=== PATIENT | female | born 1945 | race Caucasian/White ===

== ENCOUNTER 2016-06-22 11:23 | Inpatient (IN) | payer MEDICARE, MEDICAID ==
[~2016-06-22] VITALS: Ht 152.4 cm; Wt 69.7 kg
[2016-06-22] VITALS (12 sets, daily range): BP systolic 74–117; BP diastolic 57–67; PULSE 108–126; RESP 20–40; TEMP 97.8–98.1; O2SAT 76–100
[2016-06-22 13:13] LABS: BLOOD GAS BASE EXCESS -6.3 mmol/L (-2-2); BLOOD GAS CARBOXYHEMOGLOBIN 1.1 % (0-4); BLOOD GAS HCO3 18 mmol/L (22-26); BLOOD GAS METHEMOGLOBIN 1.1 % (0-2); BLOOD GAS O2 HGB SATURATION 93 % (90-100); BLOOD GAS OXYGEN CONTENT 15.6 Vol % (12.0-20.0); BLOOD GAS PCO2 34 mmHg (38-42); BLOOD GAS PO2 76 mmHg (61-120); BLOOD GAS TOTAL HGB 11.9 G/DL (12.0-16.0); TEMP CORR TO 98.6
[2016-06-22 13:14] LABS: CRITICAL VALUE NO; DRAW SITE ART LINE; OXYGEN DEVICE VENTILATOR; STAT YES; VENT SETTINGS PC/AC
[2016-06-22 13:15] LABS: FIO2 100 %
[2016-06-22] MEDS ORDERED: MIDAZOLAM 100 MG/ML INJ 100 ML IV SCH ×2 (13:15→14:45)
[2016-06-22] MEDS ORDERED: fentaNYL DRIP 250 ML IV SCH ×2 (13:15→14:45)
[2016-06-22] MEDS ORDERED: CHLORHEXIDINE GLUCONATE 2 % 1 PACK (2 CLOTHS) TOP PRN (13:15)
[2016-06-22] MEDS ORDERED: MISCELLANEOUS NURSING INFORMATION XX SCH (13:15)
[2016-06-22] MEDS ORDERED: SODIUM CHLORIDE 0.9% FLUSH 5 ML FLUSH IV FLUSH PRN (13:15)
[2016-06-22] MEDS ORDERED: SODIUM CHLOR 0.9% 1000 ML INJ 1,000 ML IV ONE ×3 (13:30→18:45)
--- NOTE | 2016-06-22 13:41 | HHI.HP ---
[facility] Service Critical Care Medicine Primary Care Physician Unknown Admission Diagnosis Diagnosis: (1) Septic shock Diagnosis: Principal (2) Acute mesenteric ischemia Diagnosis: Principal (3) Metabolic acidemia Diagnosis: Principal (4) Acute hypoxemic respiratory failure Diagnosis: Principal (5) S/P right hemicolectomy Diagnosis: Principal (6) Acute kidney failure Diagnosis: Principal (7) Lactic acidosis Diagnosis: Principal Chief Complaint: Acute on chronic mesenteric ischemia s/p r hemicolectomy severe septic shock Multiorgan dysfunction syndrome Travel History International Travel<30 Days: No Contact w/Intl Traveler <30 Da: No Traveled to Known Affected Are: No Sepsis Criteria SIRS Criteria (2 or more): Heart rate over 90, RR > 20 or PaCO2 < 32, WBC > 43434, < 4000 or > 10% bands Sepsis Criteria (SIRS+source): Infect source susp/known Severe Sepsis (+one): Organ Dysfunction, Hypotension, Lactate >2 Septic Shock Criteria: Unresponsive to 30ml/kg fluid bolus, Lactic acid >=4 Multiple Organ Dysfunction Syn: Evidence -2 organs failing Criteria Outcome: Meets septic shock criteria History of Present Illness Patient is a 70-year-old female with past medical history significant for multiple bowel obstructions, multiple exploratory laparotomy in the past, history of diabetes, hypothyroidism, depression, lupus, asthma who presented to the [facility] with intractable nausea vomiting and diarrhea. CT evaluation of the abdomen in the ER showed small bowel infarction, pneumatosis intestinalis, mesenteric venous air and portal venous air. She was in profound septic shock was aggressively resuscitated intubated and placed on mechanical ventilation. Apparently pressor requirement rapidly increased to requiring 4 pressors, and stress dose steroids. She was placed on epinephrine, Levophed, vasopressin and Tigre-Synephrine infusions. Gen. surgery was emergently consulted. Patient underwent emergency exploratory laparoscopy and apparently her righ colon was found to be ischemic. There was global lack of flow to the small bowel and right hepatic flexure specifically looked nonviable. Patient had right hemicolectomy. The distal ileum was anastomosed to the transverse colon. Patient remained on multiple pressors overnight and was fluid resuscitated overnight. Attending surgeon contacted Dr. Flores at [facility] for transfer, specifically for vascular intervention for suspected acute on chronic mesenteric ischemia I immediately examined the patient on arrival to the ICU. She remained on 30 mics per minute of Levophed, 0.04 IU vasopressin, and Tigre-Synephrine at 100 mcg/ m. Her blood pressure was systolic 80 and Tigre-Synephrine was doubled. I also gave her an amp of bicarbonate and 2 L of normal saline boluses stat. All the labs are pending at this time I placed her on Zosyn, single dose of vancomycin and also added Flagyl for history of C. difficile colitis. Dr. Flores is requesting a CT angiogram of chest abdomen pelvis, to decide upon the best course of surgery. We'll continue with aggressive fluid resuscitation and antibiotic coverage and ventilator support until then. Patient has a right IJ central line and right radial arterial line which was placed yesterday 06/21/16 Review of Systems ROS Limitations: Intubated, Altered Mental Status Past Family Social History Allergies: Coded Allergies: UNOBTAINABLE (Unverified , 06/22/16) Intubated Past Medical History Recurrent small bowel obstructions History of lupus History of C. difficile colitis Anxiety and depression Hypertension Asthma Chronic pain and narcotic abuse Hypothyroidism Type 2 diabetes Peptic ulcer disease Glaucoma Osteoporosis Past Surgical History Thyroidectomy Cholecystectomy Multiple exploratory laparotomy Knee surgery Hemorrhoidectomy Reported Medications Unable to review at this time Active Ordered Medications Currently on Levophed 30 mics per minute, vasopressin at 0.04 international units, Tigre-Synephrine 100 mcg/m On Versed for sedation Family History Unable to obtain Social History Unable to obtain but per transfer summary, no alcohol or tobacco use Physical Exam Physical Exam GENERAL: 70 yo female who is intubated, critically ill, currently on 3 pressors SKIN: Bruising hematoma on the right fore hand, recent surgical incision with sutures right second toe. HEAD: Atraumatic. Normocephalic. EYES: 3 mm bilaterally. No scleral icterus. Positive scleral edema ENT: Mucous membranes dry, orotracheally intubated NECK: Trachea midline, right IJ central line in place CARDIOVASCULAR: Tachycardic. No murmurs rubs or gallops. Currently on maximum doses of Levophed, vasopressin and 200 mcg/m of Tigre-Synephrine RESPIRATORY: Air entry diminished bilaterally with few coarse rhonchi, scattered wheezes GASTROINTESTINAL: Abdomen soft, midline incision dressing intact. Patient grimaces to pain : Knox in place. MUSCULOSKELETAL: Poor peripheral perfusion, weak peripheral pulses NEUROLOGICAL: Eyes are spontaneously open. Weakly withdraws all extremities Laboratory Laboratory Tests Test 06/22/16 12:43 Blood Gas Puncture Site ART LINE Blood Gas Patient Temperature 98.6 Blood Gas HCO3 18 Blood Gas Base Excess -6.3 Blood Gas Oxygen Saturation 93 Arterial Blood pH 7.35 Arterial Blood Partial 34 Pressure CO2 Arterial Blood Partial 76 Pressure O2 Arterial Blood Oxygen Content 15.6 Arterial Blood 1.1 Carboxyhemoglobin Arterial Blood Methemoglobin 1.1 Blood Gas Hemoglobin 11.9 Oxygen Delivery Device VENTILATOR Blood Gas Ventilator Setting PC/AC Blood Gas Inspired Oxygen [address] abdomen pelvis showed small bowel infarction and pneumatosis intestinalis with mesenteric venous and portal venous Septic Shock Reassessment Heart: Other (tachycardic) Lungs: Course, Diminished Skin: Mottled Peripheral Pulses: Weak Right Radial Weak Left Radial Assessment and Plan Assessment and Plan NEURO: Acute metabolic encephalopathy History of Anxiety depression History of Chronic pain -Versed and fentanyl for sedation and vent synchrony -No sedation vacation RESP: Acute hypoxemic respiratory failure ARDS History of asthma -Currently on PC/AC- change to ACV TV 400 PEEP 10 RR 20 Titrate FiO2 100% -ABG in 30 MIN -DuoNeb every 6 hours and when necessary -Check sputum culture CV: Severe shock (combination of septic and cardiogenic) Lactic acidemia Reported atrial fibrillation with RVR -Currently on Levophed, vasopressin and Tigre-Synephrine -Check central venous oxygen saturation, if less than 65 start dobutamine -Check bedside echo -Normal saline IV fluids 4L bolus followed by bicarb infusion -Serial lactic acid, troponin, CVP -Gee Trac monitor, SVV, CI, SV GI: Acute on chronic mesenteric ischemia Status post right hemicolectomy -Continue aggressive fluid resuscitation, broad-spectrum antibiotics -Status post exploratory laparoscopy and right hemicolectomy with ileo-colon anastomosis -Plan for CT angiogram of the abdomen pelvis today-SMA intervention per CT : Acute kidney failure -Monitor renal function closely. Knox catheter. -Continue aggressive fluid resuscitation -Renal failure is secondary to ATN from septic shock ID: Severe septic shock Leukocytosis -Blood culture urine culture and sputum culture -IV vancomycin 1, placed on Zosyn and Flagyl (hx of C diff) -ID consult if not improving HEME: -Monitor CBC, CMP, coags ENDO: Type 2 diabetes -Sliding-scale insulin -Electrolyte replacement per protocol -Stress dose steroids PROPH: -Bilateral lower extremity SCDs. Protonix 40 mg IV daily. Heparin 5000 units subcutaneous every 12 LINES: -Utilize peripheral IVs, central line if needed CC time 120min Code Status Full Discussed Condition With Dr. Flores Problem Qualifiers (1) Acute kidney failure: Qualified Code: N17.9 - Acute renal failure, unspecified acute renal failure type Maribel Hodge MD Jun 22, 2016 13:41
[2016-06-22] MEDS ORDERED: TERBUTALINE INJ 1 MG/ML AMP SQ PRN (13:45)
[2016-06-22] MEDS: PHENYLEPHRINE HCL 80 MG/D5W 492 ML ADMIX IV SCH ×4 (13:57→20:39)
[2016-06-22] MEDS: VASOPRESSIN 40 U/D5W 100 ML Shock/septic shock, do NOT titrate until taper off IV SCH ×2 (13:57)
[2016-06-22] MEDS: NOREPINEPHRINE 8 MG/D5W 250 ML IV SCH ×4 (13:57→20:39)
[2016-06-22] MEDS: PIPERACIL-TAZO 3.375 GM PREMIX 50 ML IV SCH ×2 (13:59→20:38)
[2016-06-22] MEDS: HEPARIN SODIUM - SQ 10,000 UNITS/ML VIAL SQ SCH (14:00)
[2016-06-22] MEDS ORDERED: SODIUM BICARBONATE 8.4% INJ 100 MEQ in DEXTROSE 5% IN WATE 1000ML INJ 1,000 ML IV SCH ×2 (14:00)
[2016-06-22 14:40] LABS: HEMATOCRIT 34.1 % (35.0-46.0); MEAN CELL VOLUME 97.6 FL (80.0-100.0); MEAN CORPUSCULAR HEMOGLOBIN 32.4 PG (27.0-34.0); MEAN CORPUSCULAR HGB CONC 33.2 % (32.0-36.0); PLATELET COUNT 91 TH/MM3 (150-450); RED CELL DISTRIBUTION WIDTH 15.4 % (11.6-17.2); WHITE BLOOD COUNT 22.1 TH/MM3 (4.0-11.0)
[2016-06-22 14:45] LABS: APTT (PATIENT) 53.8 SEC (24.3-30.1); INTERNATIONAL NORMALIZED RATIO 1.7 RATIO; PROTHROMBIN TIME - PATIENT 19.1 SEC (9.8-11.6)
[2016-06-22 14:49] LABS: HEMO FLAGS AUTO DIFF
[2016-06-22] MEDS ORDERED: VANCOMYCIN INJ 1,000 MG in SODIUM CHLOR 0.9% 250 ML INJ 250 ML IV ONE (15:00)
[2016-06-22 15:04] LABS: BICARBONATE 19.2 MEQ/L (21.0-32.0); CALCIUM-PROTEIN CORRECTED 7.6 MG/DL (8.5-10.1); MAGNESIUM 1.7 MG/DL (1.5-2.5); POTASSIUM 3.6 MEQ/L (3.5-5.1); TOTAL BILIRUBIN ADULT 0.9 MG/DL (0.2-1.0)
--- NOTE | 2016-06-22 15:14 | RADRPT ---
EXAM DATE/TIME: 06/22/2016 14:47 [facility] COMPARISON: No previous studies available for comparison. INDICATIONS : Respiratory disease. MEDICAL HISTORY : Unobtainable. SURGICAL HISTORY : Unobtainable. ENCOUNTER: Initial ACUITY: 1 day PAIN SCORE: Non-responsive. LOCATION: Bilateral chest FINDINGS: A single AP portable semierect view the chest was obtained and demonstrates an endotracheal tube in p lace with the tip 1 cm above the pj. A nasogastric tube is seen coursing through the esophagus in to the stomach. There is a right internal jugular central venous line in place. Alveolar opacities ar e present in both lungs with more consolidative opacity at the left lung base with obscuration of the left hemidiaphragm. There is blunting of both costophrenic angles. Atherosclerotic calcifications ar e present in the aorta. Patient is status post multilevel kyphoplasty in the thoracic spine. CONCLUSION: 1. Bilateral pleural effusions and alveolar opacities which could indicate congestive heart failure. 2. Endotracheal tube and nasogastric tube in place. Jose Renteria MD on June 22, 2016 at 15:07 Board Certified Radiologist. This report was verified electronically.
[2016-06-22 15:16] LABS: BANDS 36 % (0-6); CORRECTED NUCLEATED RBC 1 /100 WBC (0-0); METAMYELOCYTES 4 % (0-1); MYELOCYTES 3 % (0-0); NEUTROPHIL # MANUAL DIFF 21.4 TH/MM3 (1.8-7.7); POLYS (SEG NEUTROPHILS) 54 % (16-70); WBC DIFF SAMPLE 100
[2016-06-22 15:17] LABS: OVALOCYTES 1+ (NORMAL); PLATELET ESTIMATE SMEAR LOW (NORMAL); PLATELET MORPHOLOGY NORMAL (NORMAL); SCAN/DIFF FINAL DIFF MANUAL
--- NOTE | 2016-06-22 16:18 | HHI.HP ---
History of Present Illness Chief Complaint: acute mesenteric ischemia History of Present Illness History obtained from chart and referring surgeon as patient is sedation, intubated and in guarded condition 70yo lady presented to [facility] ([facility]) with abdominal pain. She has a history of multiple SBO and the appropriate thought was internal hernia/SBO. Upon exploration, she was noted to have R colonic ischemia and poor pulsatility in the SMA. A R hemicolectomy was performed and an iliocolonic anastomosis was done. Post-operatively she was on 3 pressors but over night, they were weaned. She was transferred here for further management, resuscitation, and potential mesenteric revascularization. NC CT shows calcific visceral artery occlusive disease. Past/Family/Social History Past Medical History HTN DM SLE hypothyroidism osteopenia peptic ulcer disease Past Surgical History TESS cholecystectomy TOM TKA Coded Allergies: UNOBTAINABLE (Unverified , 06/22/16) Intubated Review of Systems ROS Limitations: Clinical Condition Constitutional: DENIES: Fever, Chills, Change in appetite Endocrine: DENIES: Heat/cold intolerance Eyes: DENIES: Blurred vision, Eye pain Physical Exam Vitals/I&O Date Time Temp Pulse Resp B/P Pulse Ox O2 Delivery O2 Flow Rate FiO2 06/22/16 12:40 100 100 Neuro: sedated, intubated HEENT: swollen eyes c/w resuscitation Neck: no JVD but edematous Heart: reg rate Abdomen: incision dressing c/d/i Vascular: extremities cool, no open wounds Laboratory Tests Test 06/22/16 06/22/16 06/22/16 12:43 13:20 13:50 Blood Gas Puncture Site ART LINE Blood Gas Patient Temperature 98.6 Blood Gas HCO3 18 Blood Gas Base Excess -6.3 Blood Gas Oxygen Saturation 93 Arterial Blood pH 7.35 Arterial Blood Partial 34 Pressure CO2 Arterial Blood Partial 76 Pressure O2 Arterial Blood Oxygen Content 15.6 Arterial Blood 1.1 Carboxyhemoglobin Arterial Blood Methemoglobin 1.1 Blood Gas Hemoglobin 11.9 Oxygen Delivery Device VENTILATOR Blood Gas Ventilator Setting PC/AC Blood Gas Inspired Oxygen 100 White Blood Count 22.1 Red Blood Count 3.50 Hemoglobin 11.3 Hematocrit 34.1 Mean Corpuscular Volume 97.6 Mean Corpuscular Hemoglobin 32.4 Mean Corpuscular Hemoglobin 33.2 Concent Red Cell Distribution Width 15.4 Platelet Count 91 Mean Platelet Volume 8.9 Neutrophils (%) (Auto) Lymphocytes (%) (Auto) Monocytes (%) (Auto) Eosinophils (%) (Auto) Basophils (%) (Auto) Neutrophils # (Auto) Lymphocytes # (Auto) Monocytes # (Auto) Eosinophils # (Auto) Basophils # (Auto) CBC Comment AUTO DIFF Differential Total Cells 100 Counted Neutrophils % (Manual) 54 Band Neutrophils % 36 Lymphocytes % 1 Monocytes % 2 Neutrophils # (Manual) 21.4 Metamyelocytes 4 Myelocytes 3 Nucleated Red Blood Cells 1 Differential Comment FINAL DIFF MANUAL Platelet Estimate LOW Platelet Morphology Comment NORMAL Ovalocytes 1+ Prothrombin Time 19.1 Prothromb Time International 1.7 Ratio Activated Partial 53.8 Thromboplast Time Fibrinogen 270 Sodium Level 143 Potassium Level 3.6 Chloride Level 105 Carbon Dioxide Level 19.2 Anion Gap 19 Blood Urea Nitrogen 22 Creatinine 1.78 Estimat Glomerular Filtration 28 Rate Random Glucose 221 Lactic Acid Level 11.0 Calcium Level 5.9 Protein Corrected Calcium 7.6 Magnesium Level 1.7 Total Bilirubin 0.9 Aspartate Amino Transf 46 (AST/SGOT) Alanine Aminotransferase 25 (ALT/SGPT) Alkaline Phosphatase 39 Troponin I 0.53 Total Protein 3.7 Albumin 2.2 Nasal Screen MRSA (PCR) NEGATIVE Date/Time Procedure Status Source Growth 06/22/16 15:29 Aerobic Blood Culture Received Blood Line Pending 06/22/16 15:29 Anaerobic Blood Culture Received Blood Line Pending Last 48 hours Impressions Chest X-Ray 06/22/16 0000 Signed Impressions: Service Date/Time: Wednesday, June 22, 2016 14:47 - CONCLUSION: 1. Bilateral pleural effusions and alveolar opacities which could indicate congestive heart failure. 2. Endotracheal tube and nasogastric tube in place. Jose Renteria MD Assessment and Plan Plan She needs continued aggressive resuscitation including FFP given INR 1.7. CTA of C/A/P. Based on results of resuscitation, will proceed to revascularization, open or endovascularly and potential bowel resection. Pt is very guarded condition, as was communicated by prior surgeon to family, and I will re-iterate. Yusef Flores MD Jun 22, 2016 16:18
[2016-06-22 16:29] LABS: BLOOD GAS BASE EXCESS -5.5 mmol/L (-2-2); BLOOD GAS CARBOXYHEMOGLOBIN 1.1 % (0-4); BLOOD GAS HCO3 19 mmol/L (22-26); BLOOD GAS O2 HGB SATURATION 94 % (90-100); BLOOD GAS OXYGEN CONTENT 14.6 Vol % (12.0-20.0); BLOOD GAS PCO2 31 mmHg (38-42); BLOOD GAS PO2 80 mmHg (61-120); CRITICAL VALUE NO; OXYGEN DEVICE VENTILATOR; TEMP CORR TO 98.6
[2016-06-22 16:30] LABS: DRAW SITE ART LINE; FIO2 100 %; STAT NO; VENT SETTINGS AC RR20VT500PEEP10
[2016-06-22] MEDS: RESP: ALBUTEROL 2.5 MG/IPRATROPIUM 0.5 MG NEB (SCH) INH ×2 (16:37→20:24)
[2016-06-22] MEDS: metroNIDAZOLE 500 MG INJ 100 ML IV SCH (16:46)
[2016-06-22] MEDS: SODIUM BICARBONATE 8.4% INJ 150 MEQ in WATER STERILE FOR INJ 850 ML IV SCH ×2 (16:47→21:52)
[2016-06-22] MEDS ORDERED: IODIXANOL 320 MG/ML 10 ML VIAL (for Rad CT) IV ONE (17:24)
--- NOTE | 2016-06-22 18:07 | RADRPT ---
EXAM DATE/TIME: 06/22/2016 17:19 [facility] COMPARISON: No previous studies available for comparison. INDICATIONS : Diffuse abdominal pain; evaluate for mesenteric ischemia. IV CONTRAST: 50 cc Visipaque (iodixanol) IV RADIATION DOSE: 8.87 CTDIvol (mGy) MEDICAL HISTORY : None SURGICAL HISTORY : None. ENCOUNTER: Initial ACUITY: 1 day PAIN SCALE: Non-responsive LOCATION: Abdomen/pelvis TECHNIQUE: Volumetric scanning was performed using a multi-row detector CT scanner. The data was post processed with a variety of visualization algorithms including full volume maximum intensity pr ojection, multi-planar sliding thin slab reformation, curved planar reformation, and surface renderin g techniques. Using automated exposure control and adjustment of the mA and/or kV according to patie nt size, radiation dose was kept as low as reasonably achievable to obtain optimal diagnostic quality images. FINDINGS: ABDOMINAL AORTA: There is atherosclerotic calcification of the abdominal aorta. The origin of the c eliac is widely patent but there is a nonostial, 50% stenosis which may be flow limiting to the makenzie c distribution. The SMA shows dense atherosclerotic calcification at the origin and the lumina appea rs fenestrated and I suspect there may be a significant stenosis in this region as well. The YESENIA is v shyann diminutive but I believe remains patent. Calcification of both renal vessels without significant stenosis. PELVIS: Atherosclerotic calcifications of the iliac arteries, particularly in the region of the co mmon iliac but both iliac vessels appear to be patent. MISCELLANEOUS: Patient has extensive bilateral pulmonary infiltrates concerning for possible pneumo cristina. There are also moderate size bilateral pleural effusions. Scattered atherosclerotic calcificati ons of the coronary arteries. The patient has multiple old healed bony fractures involving multiple right-sided ribs as well as the inferior and superior pubic rami bilaterally, left worse than right, where there is brisk callus formation on the left side. There is extensive anasarca of the soft tissues of the trunk and mesentery which is nonspecific but c ould be indicative of right heart insufficiency or diffuse sepsis. Free air is identified in the william toneal cavity but the patient has evidence of recent surgical intervention. CONCLUSION: 1. 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 2. The ostium of the SMA is heavily calcified and the lumen appears to be fenestrated with a possible significant stenosis in this region as well. SMA is otherwise patent. 3. YESENIA is diffusely diminutive but I believe remains patent. 4. Findings of right heart insufficiency or sepsis with bilateral moderate size pleural effusions and concomitant atelectatic changes in the bases. There is also generalized anasarca in the subcutaneou s tissues around the trunk. Anasarca is also seen in the mesenteric leaves with some ascites in the peritoneal cavity. 5. Pneumoperitoneum but the patient does have findings of a recent surgical intervention. Please cor relate with the clinical history. 6. Findings of multiple prior bony injuries with healed fracture deformities and callus formation piter und multiple right-sided ribs as well as the superior and inferior pubic rami bilaterally. The patien t has an old thoracic multilevel kyphoplasty as well. 7. Bilateral air-space disease in the lungs. Some of this may be atelectasis but the extensive nature is concerning for a possible pneumonic component as well. Seferino Peters MD on June 22, 2016 at 17:37 Board Certified Radiologist. This report was verified electronically.
[2016-06-22] MEDS ORDERED: HYDROCORTISONE SOD SUCCINATE 100 MG VIAL IV ONE (20:15)
[2016-06-22] MEDS: ALBUMIN HUMAN 25% 25 GM/100 ML BAGP IV SCH (20:38)
[2016-06-22 20:49] LABS: BLOOD GAS BASE EXCESS -8.6 mmol/L (-2-2); BLOOD GAS CARBOXYHEMOGLOBIN 0.7 % (0-4); BLOOD GAS HCO3 19 mmol/L (22-26); BLOOD GAS O2 HGB SATURATION 89 % (90-100); BLOOD GAS OXYGEN CONTENT 13.6 Vol % (12.0-20.0); BLOOD GAS PCO2 62 mmHg (38-42); BLOOD GAS PO2 75 mmHg (61-120); BLOOD GAS TOTAL HGB 10.8 G/DL (12.0-16.0); CRITICAL VALUE YES; OXYGEN DEVICE VENTILATOR; TEMP CORR TO 98.6
[2016-06-22 20:50] LABS: DRAW SITE ART LINE; FIO2 100 %; STAT YES; VENT SETTINGS PC/AC/
[2016-06-22 20:50] LABS: BLOOD GAS VENOUS BASE EXCESS -6.4 mmol/L (-2-2); BLOOD GAS VENOUS HCO3 22 mmol/L (22-26); BLOOD GAS VENOUS O2 CONTENT 8.6 Vol % (9.0-17.0); BLOOD GAS VENOUS O2 HGB SAT 54 % (70-76); BLOOD GAS VENOUS PCO2 78 mmHg (44-48); BLOOD GAS VENOUS PO2 37 mmHg (35-40); BLOOD GAS VENOUS pH 7.09 (7.360-7.400); TEMP CORR TO 98.6
[2016-06-22 20:51] LABS: CRITICAL VALUE YES; DRAW SITE ART LINE; FIO2 100 %; OXYGEN DEVICE VENTILATOR; VENT SETTINGS PC/AC/
[2016-06-22 20:52] LABS: STAT YES
[2016-06-22] MEDS ORDERED: DOBUTamine INJ 1,000 MG in DEXTROSE 5% IN WATER INJ 170 ML IV SCH ×2 (21:00)
[2016-06-22] MEDS: SODIUM CHLORIDE 0.9% FLUSH 5 ML FLUSH IV FLUSH SCH (21:00)
[2016-06-22] MEDS: EPINEPHrine (1:1000) INJ 2 MG in DEXTROSE 5% IN WATER INJ 248 ML IV SCH ×2 (21:51)
[2016-06-22 23:31] LABS: BLOOD GAS BASE EXCESS -7.5 mmol/L (-2-2); BLOOD GAS HCO3 18 mmol/L (22-26); BLOOD GAS O2 HGB SATURATION 97 % (90-100); BLOOD GAS OXYGEN CONTENT 13.5 Vol % (12.0-20.0); BLOOD GAS PCO2 36 mmHg (38-42); BLOOD GAS PO2 184 mmHg (61-120); BLOOD GAS TOTAL HGB 9.6 G/DL (12.0-16.0); TEMP CORR TO 98.6
[2016-06-22 23:32] LABS: CRITICAL VALUE NO; OXYGEN DEVICE VENTILATOR; VENT SETTINGS PC/AC
[2016-06-22 23:33] LABS: DRAW SITE ART LINE; FIO2 100 %; STAT NO
[2016-06-23] VITALS (9 sets, daily range): BP systolic 100–132; BP diastolic 60–74; PULSE 108–132; RESP 24; TEMP 97.5–99.3; O2SAT 67–97
[2016-06-23] MEDS: NOREPINEPHRINE 8 MG/D5W 250 ML IV SCH ×4 (00:55→11:19)
[2016-06-23] MEDS: PIPERACIL-TAZO 3.375 GM PREMIX 50 ML IV SCH ×3 (01:53→14:00)
[2016-06-23] MEDS: HEPARIN SODIUM - SQ 10,000 UNITS/ML VIAL SQ SCH ×2 (01:53→14:00)
[2016-06-23] MEDS: RESP: ALBUTEROL 2.5 MG/IPRATROPIUM 0.5 MG NEB (SCH) INH ×2 (03:17→10:55)
[2016-06-23 03:36] LABS: BLOOD GAS BASE EXCESS -6.5 mmol/L (-2-2); BLOOD GAS HCO3 18 mmol/L (22-26); BLOOD GAS O2 HGB SATURATION 98 % (90-100); BLOOD GAS OXYGEN CONTENT 14.3 Vol % (12.0-20.0); BLOOD GAS PCO2 34 mmHg (38-42); BLOOD GAS PO2 231 mmHg (61-120); TEMP CORR TO 98.6
[2016-06-23 03:37] LABS: CRITICAL VALUE NO; DRAW SITE ART LINE; FIO2 100 %; OXYGEN DEVICE VENTILATOR; STAT NO; VENT SETTINGS PC/AC
[2016-06-23 03:53] LABS: HEMATOCRIT 29.7 % (35.0-46.0); MEAN CELL VOLUME 97.7 FL (80.0-100.0); MEAN CORPUSCULAR HEMOGLOBIN 32.4 PG (27.0-34.0); MEAN CORPUSCULAR HGB CONC 33.2 % (32.0-36.0); PLATELET COUNT 53 TH/MM3 (150-450); RED BLOOD COUNT 3.04 MIL/MM3 (4.00-5.30); RED CELL DISTRIBUTION WIDTH 15.8 % (11.6-17.2); WHITE BLOOD COUNT 27.9 TH/MM3 (4.0-11.0)
[2016-06-23] MEDS ORDERED: HYDROCORTISONE SOD SUCCINATE 100 MG VIAL IV PUSH ONE (04:00)
[2016-06-23] MEDS ORDERED: CHLORHEXIDINE GLUCONATE 2 % 1 PACK (2 CLOTHS) TOP SCH (04:00)
[2016-06-23] MEDS: HYDROCORTISONE SOD SUCCINATE 100 MG VIAL IV SCH ×2 (04:01→12:00)
[2016-06-23 04:16] LABS: ALT (GPT) 45 U/L (10-53); ANION GAP 18 MEQ/L (5-15); AST (GOT) 78 U/L (15-37); BICARBONATE 20.1 MEQ/L (21.0-32.0); BLOOD UREA NITROGEN 19 MG/DL (7-18); CHLORIDE 98 MEQ/L (98-107); GLOMERULAR FILTRATION RATE 33 ML/MIN (>89); MAGNESIUM 1.3 MG/DL (1.5-2.5); SODIUM (NA) 136 MEQ/L (136-145)
[2016-06-23 04:18] LABS: ALKALINE PHOSPHATASE 40 U/L (45-117); HEMO FLAGS AUTO DIFF; TOTAL BILIRUBIN ADULT 1.8 MG/DL (0.2-1.0)
[2016-06-23] MEDS: SODIUM BICARBONATE 8.4% INJ 150 MEQ in WATER STERILE FOR INJ 850 ML IV SCH ×2 (04:32→11:19)
[2016-06-23] MEDS: EPINEPHrine (1:1000) INJ 2 MG in DEXTROSE 5% IN WATER INJ 248 ML IV SCH ×4 (04:33→11:19)
[2016-06-23] MEDS: PHENYLEPHRINE HCL 80 MG/D5W 492 ML ADMIX IV SCH ×4 (04:33→11:19)
[2016-06-23 04:38] LABS: CALCIUM-PROTEIN CORRECTED 6.3 MG/DL (8.5-10.1)
[2016-06-23 06:05] LABS: BLOOD GAS VENOUS BASE EXCESS -2.9 mmol/L (-2-2); BLOOD GAS VENOUS HCO3 22 mmol/L (22-26); BLOOD GAS VENOUS O2 HGB SAT 48 % (70-76); BLOOD GAS VENOUS PCO2 40 mmHg (44-48); BLOOD GAS VENOUS PO2 27 mmHg (35-40); BLOOD GAS VENOUS pH 7.35 (7.360-7.400); TEMP CORR TO 98.6
[2016-06-23 06:06] LABS: CRITICAL VALUE YES; OXYGEN DEVICE VENTILATOR
[2016-06-23 06:07] LABS: DRAW SITE CENTRAL LINE; FIO2 85 %; STAT NO; VENT SETTINGS PC/AC
--- NOTE | 2016-06-23 06:32 | RADRPT ---
EXAM DATE/TIME: 06/23/2016 05:35 [facility] COMPARISON: CHEST SINGLE AP, June 22, 2016, 14:47. INDICATIONS : Shortness of breath. MEDICAL HISTORY : Non-responsive SURGICAL HISTORY : Non-responsive ENCOUNTER: Subsequent ACUITY: 2 days PAIN SCORE: Non-responsive. LOCATION: Bilateral chest FINDINGS: There is a bilateral consolidation, cardiomegaly and bilateral effusions suspected. Endotracheal tube , NG tube, right jugular line identified. Kyphoplasty cement overlies the thoracic spine. Aortic calc ification. CONCLUSION: No significant change has occurred. Walker Layne MD on June 23, 2016 at 6:30 Board Certified Radiologist. This report was verified electronically.
[2016-06-23] MEDS: VASOPRESSIN 40 U/D5W 100 ML Shock/septic shock, do NOT titrate until taper off IV SCH ×2 (07:05)
[2016-06-23 07:17] LABS: BANDS 20 % (0-6); METAMYELOCYTES 5 % (0-1); NEUTROPHIL # MANUAL DIFF 26.8 TH/MM3 (1.8-7.7); POLYS (SEG NEUTROPHILS) 71 % (16-70); SCAN/DIFF FINAL DIFF MANUAL; WBC DIFF SAMPLE 100
[2016-06-23 07:20] LABS: ACANTHOCYTES OCC (NORMAL); KERATOCYTES OCC (NORMAL); PLATELET ESTIMATE SMEAR LOW (NORMAL); PLATELET MORPHOLOGY NORMAL (NORMAL); TEARDROP RBCS 1+ (NORMAL)
[2016-06-23] MEDS ORDERED: MAGNESIUM SULFATE 2 GM/NS 100 ML IV ONE ×2 (07:45)
[2016-06-23] MEDS ORDERED: GLUCAGON 1 MG/ML VIAL OTHER PRN (08:00)
[2016-06-23] MEDS ORDERED: DEXTROSE 50% IN WATER 50 ML VIAL(D50) IV PRN (08:00)
[2016-06-23 08:10] LABS: BLOOD GAS BASE EXCESS -5.5 mmol/L (-2-2); BLOOD GAS CARBOXYHEMOGLOBIN 1.1 % (0-4); BLOOD GAS HCO3 18 mmol/L (22-26); BLOOD GAS O2 HGB SATURATION 97 % (90-100); BLOOD GAS OXYGEN CONTENT 14.2 Vol % (12.0-20.0); BLOOD GAS PCO2 29 mmHg (38-42); BLOOD GAS PO2 201 mmHg (61-120); CRITICAL VALUE NO; OXYGEN DEVICE VENTILATOR; TEMP CORR TO 98.6
[2016-06-23 08:11] LABS: DRAW SITE ALINE; FIO2 90 %; STAT NO; VENT SETTINGS SEE COMMENTS
--- NOTE | 2016-06-23 08:12 | HHI.CCPN ---
Subjective Remarks/Hospital Course Patient is a 70-year-old female with past medical history significant for multiple bowel obstructions, multiple exploratory laparotomy in the past, history of diabetes, hypothyroidism, depression, lupus, asthma who presented to the [facility] with intractable nausea vomiting and diarrhea. CT evaluation of the abdomen in the ER showed small bowel infarction, pneumatosis intestinalis, mesenteric venous air and portal venous air. She was in profound septic shock was aggressively resuscitated intubated and placed on mechanical ventilation. Apparently pressor requirement rapidly increased to requiring 4 pressors, and stress dose steroids. She was placed on epinephrine, Levophed, vasopressin and Tigre-Synephrine infusions. Gen. surgery was emergently consulted. Patient underwent emergency exploratory laparoscopy and apparently her right colon was found to be ischemic. There was global lack of flow to the small bowel and right hepatic flexure specifically looked nonviable. Patient had right hemicolectomy. The distal ileum was anastomosed to the transverse colon. Patient remained on multiple pressors overnight and was fluid resuscitated overnight. Attending surgeon contacted Dr. Flores at [facility] for transfer, specifically for vascular intervention for suspected acute on chronic mesenteric ischemia I immediately examined the patient on arrival to the ICU. She remained on 30 mics per minute of Levophed, 0.04 IU vasopressin, and Tigre-Synephrine at 100 mcg/ m. Her blood pressure was systolic 80 and Tigre-Synephrine was doubled. I also gave her an amp of bicarbonate and 2 L of normal saline boluses stat. All the labs are pending at this time I placed her on Zosyn, single dose of vancomycin and also Flagyl for history of C. difficile colitis. Dr. Flores is requesting a CT angiogram of chest abdomen pelvis, to decide upon the best course of surgery. We'll continue with aggressive fluid resuscitation and antibiotic coverage and ventilator support until then. Patient has a right IJ central line and right radial arterial line which was placed yesterday 06/21/16 SUBJ 06/23/16: Central venous sat was 54, 2 g per KG per minute, and due to hypotension epinephrine was also added at 5 mcg/m. Patient remains on 25 mcg/m of Levophed, 200 g per minute of Tigre-Synephrine, 0.04 vasopressin. Bedside echo shows diffuse hypokinesis, EF on my estimate was about 15% (while on epinephrine, Levophed and Dobutamine). stat echo is pending at this time. Urine output remained adequate 2.5 L since admission that is in the last 18 hours. Creatinine slightly decreased to 1.6, lactate remains elevated at 10. If at all possible will try to wean Tigre-Synephrine first. CTA showed SMA stenosis Objective Vital Signs Date Time Temp Pulse Resp B/P Pulse Ox O2 Delivery O2 Flow Rate FiO2 06/23/16 06:00 109 127/71 06/23/16 04:00 98.1 24 06/23/16 04:00 85 06/23/16 03:17 96 06/22/16 19:00 Mechanical Ventilator Intake and Output 06/22/16 06/22/16 06/23/16 08:00 16:00 00:00 Intake Total 3380 ml 3783 ml Output Total 400 ml 975 ml Balance 2980 ml 2808 ml Result Diagram: 06/23/16 0338 06/23/16 0338 Other Results Laboratory Tests Test 06/22/16 06/22/16 06/22/16 06/22/16 12:43 16:16 20:32 20:35 Blood Gas Puncture Site ART LINE ART LINE ART LINE ART LINE Blood Gas Patient Temperature 98.6 98.6 98.6 98.6 Blood Gas HCO3 18 mmol/L 19 mmol/L 19 mmol/L (22-26) (22-26) (22-26) Blood Gas Base Excess -6.3 mmol/L -5.5 mmol/L -8.6 mmol/L (-2-2) (-2-2) (-2-2) Blood Gas Oxygen Saturation 93 % (90-100) 94 % (90-100) 89 % (90-100) Arterial Blood pH 7.35 7.40 7.12 (7.380-7.420) (7.380-7.420) (7.380-7.420) Arterial Blood Partial 34 mmHg (38-42) 31 mmHg (38-42) 62 mmHg (38-42) Pressure CO2 Arterial Blood Partial 76 mmHg 80 mmHg 75 mmHg Pressure O2 (61-120) (61-120) (61-120) Arterial Blood Oxygen Content 15.6 Vol % 14.6 Vol % 13.6 Vol % (12.0-20.0) (12.0-20.0) (12.0-20.0) Arterial Blood 1.1 % (0-4) 1.1 % (0-4) 0.7 % (0-4) Carboxyhemoglobin Arterial Blood Methemoglobin 1.1 % (0-2) 1.0 % (0-2) 1.0 % (0-2) Blood Gas Hemoglobin 11.9 G/DL 11.0 G/DL 10.8 G/DL (12.0-16.0) (12.0-16.0) (12.0-16.0) Oxygen Delivery Device VENTILATOR VENTILATOR VENTILATOR VENTILATOR Blood Gas Ventilator Setting PC/AC AC PC/AC/ PC/AC/ [id number] Blood Gas Inspired Oxygen 100 % 100 % 100 % 100 % Venous Blood pH 7.09 (7.360-7.400) Venous Blood Partial Pressure 78 mmHg (44-48) CO2 Venous Blood Partial Pressure 37 mmHg (35-40) O2 Venous Blood HCO3 22 mmol/L (22-26) Venous Blood Oxygen Saturation 54 % (70-76) Venous Blood Oxygen Content 8.6 Vol % (9.0-17.0) Venous Blood Base Excess -6.4 mmol/L (-2-2) Test 06/22/16 06/23/16 06/23/16 23:18 03:26 05:54 Blood Gas Puncture Site ART LINE ART LINE CENTRAL LINE Blood Gas Patient Temperature 98.6 98.6 98.6 Blood Gas HCO3 18 mmol/L 18 mmol/L (22-26) (22-26) Blood Gas Base Excess -7.5 mmol/L -6.5 mmol/L (-2-2) (-2-2) Blood Gas Oxygen Saturation 97 % (90-100) 98 % (90-100) Arterial Blood pH 7.31 7.35 (7.380-7.420) (7.380-7.420) Arterial Blood Partial 36 mmHg (38-42) 34 mmHg (38-42) Pressure CO2 Arterial Blood Partial 184 mmHg 231 mmHg Pressure O2 (61-120) (61-120) Arterial Blood Oxygen Content 13.5 Vol % 14.3 Vol % (12.0-20.0) (12.0-20.0) Arterial Blood 1.0 % (0-4) 1.0 % (0-4) Carboxyhemoglobin Arterial Blood Methemoglobin 1.0 % (0-2) 1.0 % (0-2) Blood Gas Hemoglobin 9.6 G/DL 10.0 G/DL (12.0-16.0) (12.0-16.0) Oxygen Delivery Device VENTILATOR VENTILATOR VENTILATOR Blood Gas Ventilator Setting PC/AC PC/AC PC/AC Blood Gas Inspired Oxygen 100 % 100 % 85 % Venous Blood pH 7.35 (7.360-7.400) Venous Blood Partial Pressure 40 mmHg (44-48) CO2 Venous Blood Partial Pressure 27 mmHg (35-40) O2 Venous Blood HCO3 22 mmol/L (22-26) Venous Blood Oxygen Saturation 48 % (70-76) Venous Blood Oxygen Content 7.0 Vol % (9.0-17.0) Venous Blood Base Excess -2.9 mmol/L (-2-2) Imaging CT abdomen pelvis showed small bowel infarction and pneumatosis intestinalis with mesenteric venous and portal venous Objective Remarks GENERAL: 70 yo female who is intubated, critically ill, currently on multiple pressors SKIN: Bruising hematoma on the right fore hand, recent surgical incision with sutures right second toe. Skin mottled poorly perfused HEAD: Atraumatic. Normocephalic. EYES: 3 mm bilaterally. No scleral icterus. Positive scleral edema ENT: Mucous membranes dry, orotracheally intubated NECK: Trachea midline, right IJ central line in place CARDIOVASCULAR: Tachycardic. No murmurs rubs or gallops. Currently on Epinephrine, Dobutamine, Levophed, vasopressin and 200 mcg/m of Tigre-Synephrine. Bedside Echo diffuse hypokinesis, EF 15% RESPIRATORY: Air entry diminished bilaterally with few coarse rhonchi, scattered wheezes GASTROINTESTINAL: Abdomen soft, midline incision dressing intact. Patient grimaces to pain : Knox in place. MUSCULOSKELETAL: Poor peripheral perfusion, weak peripheral pulses. Skin appears mottled NEUROLOGICAL: Sedated with Versed and fentanyl. Weakly withdraws extremities to pain Urinary Catheter: Yes Assessment to: Continue Vascular Central Line Catheter: Yes Assessment to: Continue A/P Assessment and Plan NEURO: Acute metabolic encephalopathy History of Anxiety depression History of Chronic pain -Versed and fentanyl for sedation and vent synchrony -No sedation vacation RESP: Acute hypoxemic respiratory failure ARDS Pulmonary edema History of asthma -Currently on PC/AC-titrate FiO2 to keep SaO2 >90% -DuoNeb every 6 hours and when necessary -Check sputum culture -On broad-spectrum antibiotics CV: Severe shock (combination of septic and cardiogenic) Lactic acidemia Severe cardiomyopathy, estimated EF 15% Reported atrial fibrillation with RVR -Currently on Epinephrine Levophed, vasopressin and Tigre-Synephrine. 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 With severe refractory shock an EF of 15%, Dr. Flores will meet with family : Acute kidney failure -Monitor renal function closely. Knox catheter. Maintaining good urine output -Continue aggressive fluid resuscitation -Renal failure is secondary to ATN from septic shock ID: Severe septic shock Leukocytosis -Blood culture urine culture and sputum culture-follow up -IV vancomycin 1, placed on Zosyn and Flagyl (hx of C diff) -ID consult if not improving -Trend lactate HEME: Thrombocytopenia Coagulopathy -Monitor CBC, CMP, coags -Transfuse 1 packed unit of platelets, 2 units of FFP ENDO: Type 2 diabetes -Sliding-scale insulin -Electrolyte replacement per protocol -Stress dose steroids PROPH: -Bilateral lower extremity SCDs. Protonix 40 mg IV daily. Heparin 5000 units subcutaneous every 12 LINES: -Utilize peripheral IVs, RIJ central line, R radial arterial CC time 90min Maribel Hodge MD Jun 23, 2016 08:11
[2016-06-23] MEDS ORDERED: PANTOPRAZOLE SODIUM 40 MG VIAL IV SCH (09:00)
[2016-06-23] MEDS: SODIUM CHLORIDE 0.9% FLUSH 5 ML FLUSH IV FLUSH SCH (09:00)
[2016-06-23] MEDS ORDERED: CALCIUM CHLORIDE INJ 2 GM in SODIUM CHLORIDE 0.9% INJ 100 ML IV ONE (09:00)
[2016-06-23] MEDS: INSULIN ASPART SUPPLEMENTAL SCALE SQ SCH ×2 (10:14→12:00)
[2016-06-23] MEDS: metroNIDAZOLE 500 MG INJ 100 ML IV SCH ×2 (10:15)
[2016-06-23] MEDS: ALBUMIN HUMAN 25% 25 GM/100 ML BAGP IV SCH (10:15)
--- NOTE | 2016-06-23 12:16 | PD.VS.PN ---
Subjective Subjective/Hospital Course Pt admitted with acute on chronic mesenteric mesenteric ischemia, s/p bowel resection. CTA last night showed patent but diseased SMA. She overnight received appropriate resuscitation, but has continued to require multiple pressors and is now on code doses of epi, vaso, ivan. EF 15%. Objective Vitals/I&O Date Time Temp Pulse Resp B/P Pulse Ox O2 Delivery O2 Flow Rate FiO2 06/23/16 10:55 97 90 06/23/16 08:54 97 90 06/23/16 07:00 Mechanical Ventilator 90 06/23/16 06:00 109 127/71 06/23/16 04:00 98.1 110 24 122/68 06/23/16 04:00 85 06/23/16 03:17 96 100 06/23/16 00:00 97.5 108 24 100/60 06/23/16 00:00 100 06/22/16 23:15 97 100 06/22/16 21:00 100 06/22/16 20:24 89 100 06/22/16 20:00 98.1 119 20 117/67 06/22/16 20:00 100 06/22/16 19:00 Mechanical Ventilator 100 06/22/16 18:20 94 100 06/22/16 18:05 100 06/22/16 18:00 108 06/22/16 17:00 100 100 06/22/16 16:39 94 100 06/22/16 16:00 110 06/22/16 16:00 98.1 110 20 103/63 06/22/16 16:00 110 103/63 06/22/16 14:00 122 06/22/16 13:00 100 06/22/16 13:00 124 105/57 06/22/16 12:45 Mechanical Ventilator 100 06/22/16 12:45 100 06/22/16 12:45 124 06/22/16 12:45 97.8 126 40 74/61 06/22/16 12:40 100 100 Laboratory Laboratory Tests Test 06/22/16 06/22/16 06/22/16 06/22/16 12:43 13:20 13:50 15:30 Blood Gas Puncture Site ART LINE Blood Gas Patient Temperature 98.6 Blood Gas HCO3 18 Blood Gas Base Excess -6.3 Blood Gas Oxygen Saturation 93 Arterial Blood pH 7.35 Arterial Blood Partial 34 Pressure CO2 Arterial Blood Partial 76 Pressure O2 Arterial Blood Oxygen Content 15.6 Arterial Blood 1.1 Carboxyhemoglobin Arterial Blood Methemoglobin 1.1 Blood Gas Hemoglobin 11.9 Oxygen Delivery Device VENTILATOR Blood Gas Ventilator Setting PC/AC Blood Gas Inspired Oxygen 100 White Blood Count 22.1 Red Blood Count 3.50 Hemoglobin 11.3 Hematocrit 34.1 Mean Corpuscular Volume 97.6 Mean Corpuscular Hemoglobin 32.4 Mean Corpuscular Hemoglobin 33.2 Concent Red Cell Distribution Width 15.4 Platelet Count 91 Mean Platelet Volume 8.9 Neutrophils (%) (Auto) Lymphocytes (%) (Auto) Monocytes (%) (Auto) Eosinophils (%) (Auto) Basophils (%) (Auto) Neutrophils # (Auto) Lymphocytes # (Auto) Monocytes # (Auto) Eosinophils # (Auto) Basophils # (Auto) CBC Comment AUTO DIFF Differential Total Cells 100 Counted Neutrophils % (Manual) 54 Band Neutrophils % 36 Lymphocytes % 1 Monocytes % 2 Neutrophils # (Manual) 21.4 Metamyelocytes 4 Myelocytes 3 Nucleated Red Blood Cells 1 Differential Comment FINAL DIFF MANUAL Platelet Estimate LOW Platelet Morphology Comment NORMAL Ovalocytes 1+ Prothrombin Time 19.1 Prothromb Time International 1.7 Ratio Activated Partial 53.8 Thromboplast Time Fibrinogen 270 Sodium Level 143 Potassium Level 3.6 Chloride Level 105 Carbon Dioxide Level 19.2 Anion Gap 19 Blood Urea Nitrogen 22 Creatinine 1.78 Estimat Glomerular Filtration 28 Rate Random Glucose 221 Lactic Acid Level 11.0 9.5 Calcium Level 5.9 Protein Corrected Calcium 7.6 Magnesium Level 1.7 Total Bilirubin 0.9 Aspartate Amino Transf 46 (AST/SGOT) Alanine Aminotransferase 25 (ALT/SGPT) Alkaline Phosphatase 39 Troponin I 0.53 Total Protein 3.7 Albumin 2.2 Nasal Screen MRSA (PCR) NEGATIVE Test 06/22/16 06/22/16 06/22/16 06/22/16 16:16 20:32 20:35 21:45 Blood Gas Puncture Site ART LINE ART LINE ART LINE Blood Gas Patient Temperature 98.6 98.6 98.6 Blood Gas HCO3 19 19 Blood Gas Base Excess -5.5 -8.6 Blood Gas Oxygen Saturation 94 89 Arterial Blood pH 7.40 7.12 Arterial Blood Partial 31 62 Pressure CO2 Arterial Blood Partial 80 75 Pressure O2 Arterial Blood Oxygen Content 14.6 13.6 Arterial Blood 1.1 0.7 Carboxyhemoglobin Arterial Blood Methemoglobin 1.0 1.0 Blood Gas Hemoglobin 11.0 10.8 Oxygen Delivery Device VENTILATOR VENTILATOR VENTILATOR Blood Gas Ventilator Setting AC PC/AC/ PC/AC/ [id number] Blood Gas Inspired Oxygen 100 100 100 Venous Blood pH 7.09 Venous Blood Partial Pressure 78 CO2 Venous Blood Partial Pressure 37 O2 Venous Blood HCO3 22 Venous Blood Oxygen Saturation 54 Venous Blood Oxygen Content 8.6 Venous Blood Base Excess -6.4 Lactic Acid Level 8.2 Test 06/22/16 06/23/16 06/23/16 06/23/16 23:18 03:26 03:38 05:54 Blood Gas Puncture Site ART LINE ART LINE CENTRAL LINE Blood Gas Patient Temperature 98.6 98.6 98.6 Blood Gas HCO3 18 18 Blood Gas Base Excess -7.5 -6.5 Blood Gas Oxygen Saturation 97 98 Arterial Blood pH 7.31 7.35 Arterial Blood Partial 36 34 Pressure CO2 Arterial Blood Partial 184 231 Pressure O2 Arterial Blood Oxygen Content 13.5 14.3 Arterial Blood 1.0 1.0 Carboxyhemoglobin Arterial Blood Methemoglobin 1.0 1.0 Blood Gas Hemoglobin 9.6 10.0 Oxygen Delivery Device VENTILATOR VENTILATOR VENTILATOR Blood Gas Ventilator Setting PC/AC PC/AC PC/AC Blood Gas Inspired Oxygen 100 100 85 White Blood Count 27.9 Red Blood Count 3.04 Hemoglobin 9.9 Hematocrit 29.7 Mean Corpuscular Volume 97.7 Mean Corpuscular Hemoglobin 32.4 Mean Corpuscular Hemoglobin 33.2 Concent Red Cell Distribution Width 15.8 Platelet Count 53 Mean Platelet Volume 8.3 Neutrophils (%) (Auto) Lymphocytes (%) (Auto) Monocytes (%) (Auto) Eosinophils (%) (Auto) Basophils (%) (Auto) Neutrophils # (Auto) Lymphocytes # (Auto) Monocytes # (Auto) Eosinophils # (Auto) Basophils # (Auto) CBC Comment AUTO DIFF Differential Total Cells 100 Counted Neutrophils % (Manual) 71 Band Neutrophils % 20 Lymphocytes % 2 Monocytes % 2 Neutrophils # (Manual) 26.8 Metamyelocytes 5 Differential Comment FINAL DIFF MANUAL Platelet Estimate LOW Platelet Morphology Comment NORMAL Tear Drop Cells 1+ Acanthocytes OCC Keratocytes OCC Sodium Level 136 Potassium Level 4.0 Chloride Level 98 Carbon Dioxide Level 20.1 Anion Gap 18 Blood Urea Nitrogen 19 Creatinine 1.54 Estimat Glomerular Filtration 33 Rate Random Glucose 273 Lactic Acid Level 10.1 Calcium Level LESS THAN 5.0 Protein Corrected Calcium 6.3 Magnesium Level 1.3 Total Bilirubin 1.8 Aspartate Amino Transf 78 (AST/SGOT) Alanine Aminotransferase 45 (ALT/SGPT) Alkaline Phosphatase 40 Total Protein 3.8 Albumin 2.4 Venous Blood pH 7.35 Venous Blood Partial Pressure 40 CO2 Venous Blood Partial Pressure 27 O2 Venous Blood HCO3 22 Venous Blood Oxygen Saturation 48 Venous Blood Oxygen Content 7.0 Venous Blood Base Excess -2.9 Test 06/23/16 06/23/16 06/23/16 06/23/16 08:00 08:10 08:54 09:35 Blood Gas Puncture Site HIREN Blood Gas Patient Temperature 98.6 Blood Gas HCO3 18 Blood Gas Base Excess -5.5 Blood Gas Oxygen Saturation 97 Arterial Blood pH 7.41 Arterial Blood Partial 29 Pressure CO2 Arterial Blood Partial 201 Pressure O2 Arterial Blood Oxygen Content 14.2 Arterial Blood 1.1 Carboxyhemoglobin Arterial Blood Methemoglobin 1.0 Blood Gas Hemoglobin 10.0 Oxygen Delivery Device VENTILATOR Blood Gas Ventilator Setting SEE COMMENTS Blood Gas Inspired Oxygen 90 Blood Type O POSITIVE O POSITIVE Blood Bank Comment Date/Time Procedure Status Source Growth 06/22/16 16:40 Urine Culture Received Urine Catheterized Urine Pending 06/22/16 16:40 Gram Stain - Final Resulted Sputum Endotracheal 06/22/16 16:40 Sputum Culture - Preliminary Resulted Sputum Endotracheal LIGHT GROWTH NORMAL RESPIRATORY GURDEEP... 06/22/16 15:29 Aerobic Blood Culture - Preliminary Resulted Blood Line NO GROWTH IN 1 DAY 06/22/16 15:29 Anaerobic Blood Culture - Preliminary Resulted Blood Line NO GROWTH IN 1 DAY Imaging Last 48 hours Impressions Chest X-Ray 06/23/16 0000 Signed Impressions: Service Date/Time: Thursday, June 23, 2016 05:35 - CONCLUSION: No significant change has occurred. Walker Layne MD Chest X-Ray 06/22/16 0000 Signed Impressions: Service Date/Time: Wednesday, June 22, 2016 14:47 - CONCLUSION: 1. Bilateral pleural effusions and alveolar opacities which could indicate congestive heart failure. 2. Endotracheal tube and nasogastric tube in place. Jose Renteria MD Assessment and Plan Plan I think that given the lack of response to appropriate resuscitation, her chance of survival is zero. I discussed this at length with the patient's daughter and granddaughters and they do not wish to proceed with surgery. I think this is appropriate and reasonable. Will d/c pressors and proceed with WOC when they are ready. I discussed with Dr. Hodge and he agrees. Yusef lFores MD Jun 23, 2016 12:16
[2016-06-23] MEDS ORDERED: HYOSCYAMINE 0.5 MG/ML AMP IV ONE (13:00)
[2016-06-23] MEDS ORDERED: LORazepam 2 MG/ML VIAL IVS PRN (13:00)
[2016-06-23] MEDS ORDERED: MORPHINE SULFATE 4 MG/ML INJ IV PRN (13:00)
[2016-06-23] MEDS ORDERED: MORPHINE SULFATE 8 MG/ML INJ IV PUSH ONE (13:00)
[2016-06-23] MEDS ORDERED: MORPHINE SULFATE 4 MG/ML INJ IV ONE (13:00)
[2016-06-23] MEDS ORDERED: LORazepam 2 MG/ML VIAL IV PRN ×2 (13:00)
[2016-06-23] MEDS ORDERED: HYOSCYAMINE 0.5 MG/ML AMP IV PRN (13:00)
[2016-06-23] MEDS ORDERED: LORazepam 2 MG/ML VIAL IV ONE ×2 (13:00)
--- NOTE | 2016-06-23 15:01 | EC ---
Study Study Date:06/23/2016 STUDY CONCLUSIONS SUMMARY - Left ventricle: The cavity size was normal. Wall thickness was normal. Severely decrease LV systolic function. The estimated ejection fraction was 15%. Diffuse hypokinesis. - Mitral valve: Moderate to severe regurgitation. - Left atrium: The atrium was moderately dilated. - Pulmonary arteries: PA peak pressure: 35mm Hg (S). - Pericardium, extracardiac: There was a right pleural effusion. There was a left pleural effusion. If LV function is below 40, please consider prescribing an ACEI or ARB or document rationale for non-use. PROCEDURE DATA STUDY STATUS: Elective. Procedure: Transthoracic echocardiography. Image quality was good. Scanning was performed from the parasternal, apical, and subcostal acoustic windows. Study completion: The patient tolerated the procedure well. Transthoracic echocardiography. M-mode, complete 2D, complete spectral Doppler, and color Doppler. Patient status: Inpatient. CARDIAC ANATOMY LEFT VENTRICLE: The cavity size was normal. Wall thickness was normal. Severely decrease LV systolic function. The estimated ejection fraction was 15%. Diffuse hypokinesis. AORTIC VALVE: Trileaflet; normal thickness leaflets. Doppler: Transvalvular velocity was within the normal range. There was no stenosis. No regurgitation. AORTA: The aorta was mildly calcified. Aortic root: The aortic root was normal in size. MITRAL VALVE: Structurally normal valve. Doppler: Transvalvular velocity was within the normal range. There was no evidence for stenosis. Moderate to severe regurgitation. Mean gradient: 1mm Hg (D). Peak gradient: 2mm Hg (D). LEFT ATRIUM: The atrium was moderately dilated. RIGHT VENTRICLE: The cavity size was normal. Wall thickness was normal. PULMONIC VALVE: Doppler: Transvalvular velocity was within the normal range. There was no evidence for stenosis. No regurgitation. TRICUSPID VALVE: Structurally normal valve. Doppler: Transvalvular velocity was within the normal range. No regurgitation. PULMONARY ARTERY: The main pulmonary artery was normal-sized. Systolic pressure was within the normal range. RIGHT ATRIUM: The atrium was normal in size. PERICARDIUM: There was no pericardial effusion. SYSTEMIC VEINS: Inferior vena cava: The vessel was normal in size. Pleura: There was a right pleural effusion. There was a left pleural effusion. BASIC MEASUREMENTS ADULT Normal Left ventricle LV internal dimension, ED, chordal level, 45.6 mm 43-52 PLAX LV internal dimension, ES, chordal level, *43.2 mm 23-38 PLAX Fractional shortening, chordal level, PLAX *5 % >29 LV posterior wall thickness, ED 7.32 mm IVS/LVPW ratio, ED *1.57 <1.3 Volume, ED, MOD, 1-plane 82 ml Volume, ES, MOD, 1-plane 65 ml Ejection fraction, MOD, 1-plane 21 % Stroke volume, MOD, 1-plane 17 ml Volume, ED, MOD, 2-plane 91 ml Volume, ES, MOD, 2-plane 72 ml Ejection fraction, MOD, 2-plane 21 % Stroke volume, MOD, 2-plane 19 ml Ventricular septum Septal thickness, ED 11.5 mm Aortic valve Leaflet separation 17 mm 15-26 Left atrium Anterior-posterior dimension 44 mm Right ventricle RV internal dimension, ED, PLAX 19.3 mm 19-38 BASIC MEASUREMENTS ADULT Normal Aortic valve Leaflet separation 17 mm 15-26 Aorta Root diameter, ED 30 mm 20-37 DOPPLER MEASUREMENTS ADULT Normal Main pulmonary artery Pressure, S *35 mm Hg =30 Aortic valve VTI, S 15.3 cm Mitral valve Mean velocity, D 48.4 cm/s Mean gradient, D 1 mm Hg Peak gradient, D 2 mm Hg Maximal regurgitant velocity 490 cm/s Tricuspid valve Regurgitant peak velocity 250 cm/s Peak RV-RA gradient, S 25 mm Hg Maximal regurgitant velocity 250 cm/s Systemic veins Estimated CVP 10 mm Hg Right ventricle RV pressure, S *35 mm Hg <30 LEGEND: Mean values are shown as u=mean value. Asterisk (*) castro values outside specified normal range. Prepared and signed by Mateo Scott [id number]
--- NOTE | 2016-06-23 15:52 | DEATH SUM ---
Summary Demographics Date Pronounced : Jun 23, 2016 Time Of : 1341 Pronounced By: kimberley son rn and rebeca castro rn Preliminary Cause of : Multi Organ Failure Maribel Hodge MD Jun 23, 2016 15:52
[2016-06-23] MEDS ORDERED: MORPHINE SULFATE 4 MG/ML INJ IV SCH (16:00)
[2016-06-23] MEDS ORDERED: LORazepam 2 MG/ML VIAL IV SCH (16:00)
--- NOTE | 2016-06-23 16:07 | HHI.DS ---
Summary Note Date of : Jun 23, 2016 Time Of : 1341 Admission Date Jun 22, 2016 at 12:45 Admitting Diagnosis Diagnosis at Time of : (1) Septic shock ICD Code: A41.9 Diagnosis: Principal (2) Acute mesenteric ischemia ICD Code: K55.059 Diagnosis: Principal (3) Acute hypoxemic respiratory failure ICD Code: J96.01 Diagnosis: Principal (4) Metabolic acidemia ICD Code: E87.2 Diagnosis: Principal (5) Acute kidney failure ICD Code: N17.9 Diagnosis: Principal (6) Lactic acidosis ICD Code: E87.2 Diagnosis: Principal (7) Hypocalcemia ICD Code: E83.51 Diagnosis: Principal (8) Coagulopathy ICD Code: D68.9 Diagnosis: Principal (9) Leukocytosis ICD Code: D72.829 Diagnosis: Principal (10) Severe cardiomyopathy Diagnosis: Principal (11) Moderate to severe mitral regurgitation ICD Code: I34.0 Diagnosis: Principal (12) Thrombocytopenia ICD Code: D69.6 Diagnosis: Principal (13) S/P right hemicolectomy ICD Code: Z90.49 Diagnosis: Principal Brief History Patient is a 70-year-old female with past medical history significant for multiple bowel obstructions, multiple exploratory laparotomy in the past, history of diabetes, hypothyroidism, depression, lupus, asthma who presented to the [facility] with intractable nausea vomiting and diarrhea. CT evaluation of the abdomen in the ER showed small bowel infarction, pneumatosis intestinalis, mesenteric venous air and portal venous air. She was in profound septic shock was aggressively resuscitated intubated and placed on mechanical ventilation. Apparently pressor requirement rapidly increased to requiring 4 pressors, and stress dose steroids. She was placed on epinephrine, Levophed, vasopressin and Tigre-Synephrine infusions. Gen. surgery was emergently consulted. Patient underwent emergency exploratory laparoscopy and apparently her righ colon was found to be ischemic. There was global lack of flow to the small bowel and right hepatic flexure specifically looked nonviable. Patient had right hemicolectomy. The distal ileum was anastomosed to the transverse colon. Patient remained on multiple pressors overnight and was fluid resuscitated overnight. Attending surgeon contacted Dr. Flores at [facility] for transfer, specifically for vascular intervention for suspected acute on chronic mesenteric ischemia. I immediately examined the patient on arrival to the ICU. She remained on 30 mics per minute of Levophed, 0.04 IU vasopressin, and Tigre- Synephrine at 100 mcg/m. Her blood pressure was systolic 80 and Tigre-Synephrine was doubled. I also gave her an amp of bicarbonate and 2 L of normal saline boluses stat. All the labs are pending at this time I placed her on Zosyn, single dose of vancomycin and also added Flagyl for history of C. difficile colitis. Dr. Flores is requesting a CT angiogram of chest abdomen pelvis, to decide upon the best course of surgery. We'll continue with aggressive fluid resuscitation and antibiotic coverage and ventilator support until then. Patient has a right IJ central line and right radial arterial line which was placed yesterday 06/21/16 CBC/BMP: 06/23/16 0338 06/23/16 0338 Significant Findings Laboratory Tests Test 06/22/16 06/22/16 06/22/16 06/22/16 12:43 13:20 15:30 16:16 Blood Gas HCO3 18 mmol/L 19 mmol/L (22-26) (22-26) Blood Gas Base Excess -6.3 mmol/L -5.5 mmol/L (-2-2) (-2-2) Arterial Blood pH 7.35 (7.380-7.420) Arterial Blood Partial 34 mmHg (38-42) 31 mmHg (38-42) Pressure CO2 Blood Gas Hemoglobin 11.9 G/DL 11.0 G/DL (12.0-16.0) (12.0-16.0) White Blood Count 22.1 TH/MM3 (4.0-11.0) Red Blood Count 3.50 MIL/MM3 (4.00-5.30) Hemoglobin 11.3 GM/DL (11.6-15.3) Hematocrit 34.1 % (35.0-46.0) Platelet Count 91 TH/MM3 (150-450) Band Neutrophils % 36 % (0-6) Lymphocytes % 1 % (9-44) Neutrophils # (Manual) 21.4 TH/MM3 (1.8-7.7) Metamyelocytes 4 % (0-1) Myelocytes 3 % (0-0) Nucleated Red Blood Cells 1 /100 WBC (0-0) Platelet Estimate LOW (NORMAL) Ovalocytes 1+ (NORMAL) Prothrombin Time 19.1 SEC (9.8-11.6) Activated Partial 53.8 SEC Thromboplast Time (24.3-30.1) Carbon Dioxide Level 19.2 MEQ/L (21.0-32.0) Anion Gap 19 MEQ/L (5-15) Blood Urea Nitrogen 22 MG/DL (7-18) Creatinine 1.78 MG/DL (0.50-1.00) Estimat Glomerular Filtration 28 ML/MIN (>89) Rate Random Glucose 221 MG/DL (74-106) Lactic Acid Level 11.0 mmol/L 9.5 mmol/L (0.4-2.0) (0.4-2.0) Calcium Level 5.9 MG/DL (8.5-10.1) Protein Corrected Calcium 7.6 MG/DL (8.5-10.1) Aspartate Amino Transf 46 U/L (15-37) (AST/SGOT) Alkaline Phosphatase 39 U/L (45-117) Troponin I 0.53 NG/ML (0.02-0.05) Total Protein 3.7 GM/DL (6.4-8.2) Albumin 2.2 GM/DL (3.4-5.0) Test 06/22/16 06/22/16 06/22/16 06/22/16 20:32 20:35 21:45 23:18 Blood Gas HCO3 19 mmol/L 18 mmol/L (22-26) (22-26) Blood Gas Base Excess -8.6 mmol/L -7.5 mmol/L (-2-2) (-2-2) Blood Gas Oxygen Saturation 89 % (90-100) Arterial Blood pH 7.12 7.31 (7.380-7.420) (7.380-7.420) Arterial Blood Partial 62 mmHg (38-42) 36 mmHg (38-42) Pressure CO2 Blood Gas Hemoglobin 10.8 G/DL 9.6 G/DL (12.0-16.0) (12.0-16.0) Venous Blood pH 7.09 (7.360-7.400) Venous Blood Partial Pressure 78 mmHg (44-48) CO2 Venous Blood Oxygen Saturation 54 % (70-76) Venous Blood Oxygen Content 8.6 Vol % (9.0-17.0) Venous Blood Base Excess -6.4 mmol/L (-2-2) Lactic Acid Level 8.2 mmol/L (0.4-2.0) Arterial Blood Partial 184 mmHg Pressure O2 (61-120) Test 06/23/16 06/23/16 06/23/16 06/23/16 03:26 03:38 05:54 08:00 Blood Gas HCO3 18 mmol/L 18 mmol/L (22-26) (22-26) Blood Gas Base Excess -6.5 mmol/L -5.5 mmol/L (-2-2) (-2-2) Arterial Blood pH 7.35 (7.380-7.420) Arterial Blood Partial 34 mmHg (38-42) 29 mmHg (38-42) Pressure CO2 Arterial Blood Partial 231 mmHg 201 mmHg Pressure O2 (61-120) (61-120) Blood Gas Hemoglobin 10.0 G/DL 10.0 G/DL (12.0-16.0) (12.0-16.0) White Blood Count 27.9 TH/MM3 (4.0-11.0) Red Blood Count 3.04 MIL/MM3 (4.00-5.30) Hemoglobin 9.9 GM/DL (11.6-15.3) Hematocrit 29.7 % (35.0-46.0) Platelet Count 53 TH/MM3 (150-450) Neutrophils % (Manual) 71 % (16-70) Band Neutrophils % 20 % (0-6) Lymphocytes % 2 % (9-44) Neutrophils # (Manual) 26.8 TH/MM3 (1.8-7.7) Metamyelocytes 5 % (0-1) Platelet Estimate LOW (NORMAL) Tear Drop Cells 1+ (NORMAL) Acanthocytes OCC (NORMAL) Keratocytes OCC (NORMAL) Carbon Dioxide Level 20.1 MEQ/L (21.0-32.0) Anion Gap 18 MEQ/L (5-15) Blood Urea Nitrogen 19 MG/DL (7-18) Creatinine 1.54 MG/DL (0.50-1.00) Estimat Glomerular Filtration 33 ML/MIN (>89) Rate Random Glucose 273 MG/DL (74-106) Lactic Acid Level 10.1 mmol/L (0.4-2.0) Calcium Level LESS THAN 5.0 MG/DL (8.5-10.1) Protein Corrected Calcium 6.3 MG/DL (8.5-10.1) Magnesium Level 1.3 MG/DL (1.5-2.5) Total Bilirubin 1.8 MG/DL (0.2-1.0) Aspartate Amino Transf 78 U/L (15-37) (AST/SGOT) Alkaline Phosphatase 40 U/L (45-117) Total Protein 3.8 GM/DL (6.4-8.2) Albumin 2.4 GM/DL (3.4-5.0) Venous Blood pH 7.35 (7.360-7.400) Venous Blood Partial Pressure 40 mmHg (44-48) CO2 Venous Blood Partial Pressure 27 mmHg (35-40) O2 Venous Blood Oxygen Saturation 48 % (70-76) Venous Blood Oxygen Content 7.0 Vol % (9.0-17.0) Venous Blood Base Excess -2.9 mmol/L (-2-2) Imaging CT abdomen pelvis showed small bowel infarction and pneumatosis intestinalis with mesenteric venous and portal venous Hospital Course Patient is a 70-year-old female with past medical history significant for multiple bowel obstructions, multiple exploratory laparotomy in the past, history of diabetes, hypothyroidism, depression, lupus, asthma who presented to the [facility] with intractable nausea vomiting and diarrhea, found to have small bowel infarction, pneumatosis intestinalis, . She was in profound septic shock was aggressively resuscitated intubated and placed on mechanical ventilation and required 4 pressors, and stress dose steroids. She was placed on epinephrine, Levophed, vasopressin and Tigre-Synephrine infusions. Gen. surgery was consulted,underwent emergency exploratory laparoscopy and apparently her right colon was found to be ischemic. There was global lack of flow to the small bowel and right hepatic flexure specifically looked nonviable. Patient had right hemicolectomy and distal ileum was anastomosed to the transverse colon. Patient remained on multiple pressors overnight and was fluid resuscitated overnight. Dr. Flores at [facility] accepted transfer, specifically for vascular intervention for suspected acute on chronic mesenteric ischemia. She remained on 30 mics per minute of Levophed, 0.04 IU vasopressin, and Tigre-Synephrine at 200 mcg/m. I placed her on Zosyn, single dose of vancomycin and also added Flagyl for history of C. difficile colitis. CT angiogram of chest abdomen pelvis, showed SMA stenosis. Lactic acid was 11 yesterday. Patient was continued on aggressive fluid resuscitation and antibiotic coverage and ventilator support until then. Patient has a right IJ central line and right radial arterial line which was placed at [facility] 06/21/16. Patient's central venous sat was 54,and Dobutamine was started along with epinephrine maintain MAP. I did a bedside echo today which showed diffuse hypokinesis, EF about 15% (while on epinephrine, Levophed and Dobutamine ). and moderate MR. These findings were confirmed on Full Echo. I contacted Dr. Flores who offered to discuss with family. He met with patient's family and per both our recommendation, family refused surgery and requested vent withdrawal and comfort measures. All pressors were stopped and after pre medication patient was extubated at about 1330 and she passed at 1341. Maribel Hodge MD Jun 23, 2016 16:07
== END 2016-06-23 15:42 | disposition expired | DRG 871 ==
LOC: N03B 12:45 → OBSVTOIN 12:45
PROVIDERS: ADMIT Internal Medicine; ATTEND Internal Medicine
DX: A41.9 Sepsis, unspecified organism (principal); K55.069 Acute infarction of intestine, part and extent unspecified; J96.01 Acute respiratory failure with hypoxia; N17.0 Acute kidney failure with tubular necrosis; R65.21 Severe sepsis with septic shock; R57.0 Cardiogenic shock; G93.41 Metabolic encephalopathy; J90 Pleural effusion, not elsewhere classified; J81.1 Chronic pulmonary edema; K55.1 Chronic vascular disorders of intestine; K55.029 Acute infarction of small intestine, extent unspecified; E87.2 Acidosis; D68.9 Coagulation defect, unspecified; I42.9 Cardiomyopathy, unspecified; D69.6 Thrombocytopenia, unspecified; E03.9 Hypothyroidism, unspecified; E11.9 Type 2 diabetes mellitus without complications; E83.51 Hypocalcemia; I10 Essential (primary) hypertension; I34.0 Nonrheumatic mitral (valve) insufficiency; I48.91 Unspecified atrial fibrillation; M32.9 Systemic lupus erythematosus, unspecified; J45.909 Unspecified asthma, uncomplicated; M81.0 Age-related osteoporosis without current pathological fracture; H40.9 Unspecified glaucoma; Z87.11 Personal history of peptic ulcer disease; Z90.49 Acquired absence of other specified parts of digestive tract
CPT/HCPCS: 71010; 71275; 74174; 80053; 82805; 83605; 83735; 84484; 85007; 85027; 85384; 85610; 85730; 86900; 86901; 86927; 87040; 87070; 87086; 87205; 87641; 93306; 94002; 94003; 94640; 94664; C9113; J0171; J1250; J1644; J1720; J1815; J1980; J2060; J2250; J2270; J2370; J2543; J3010; J3370; J3475; J7030; J7050; J7060; J7070; P9047; Q9967